=== PATIENT | female | born 1975 | race African-American/Black ===

== ENCOUNTER 2016-07-09 09:42 | Inpatient (IN) | payer MEDICAID, OTHER ==
[~2016-07-09] VITALS: Ht 165.1 cm; Wt 82.6 kg
[2016-07-09 10:09] LABS: BASOPHILS # (AUTO) 0.04 K/uL (0.00-0.20); BASOPHILS % (AUTO) 0.6 % (0.0-2.0); EOSINOPHILS # (AUTO) 0.05 K/uL (0.00-0.70); HEMATOCRIT 37.3 % (36-46); HEMOGLOBIN 11.7 g/dL (12.0-16.0); LYMPHOCYTES # (AUTO) 2.1 K/uL (1.0-4.8); MEAN CORPUSCULAR HEMOGLOBIN 30.1 pg (26.0-34.0); MEAN CORPUSCULAR HGB CONC 31.3 G/dL (31.0-37.0); MEAN CORPUSCULAR VOLUME 96 fL (80-100); MONOCYTES # (AUTO) 0.6 K/uL (0.1-1.0); MONOCYTES % (AUTO) 7.7 % (2.0-9.0); NEUTROPHILS # (AUTO) 4.6 K/uL (1.8-7.7); PLATELET COUNT (AUTO) 452 K/uL (150-450); RED BLOOD CELL COUNT(AUTO) 3.88 MIL/uL (4.00-5.20); RED CELL DISTRIBUTION WIDTH 14.2 % (11.5-14.5); WHITE BLOOD COUNT (AUTO) 7.4 K/uL (4.5-11.0)
[2016-07-09 10:20] LABS: ANION GAP 8 mmol/L (8-16); CALCIUM, TOTAL 8.8 mg/dL (8.8-10.5); CARBON DIOXIDE 28 mmol/L (22-29); CHLORIDE 104 mmol/L (98-107); CREATININE 0.91 mg/dL (0.60-1.30); GLOMERULAR FILTR. RATE CALC > 60 mL/min (>60); POTASSIUM 3.8 mmol/L (3.5-5.1); SODIUM SERUM 140 mmol/L (136-145); UREA NITROGEN, BLOOD 8 mg/dL (7-18)
[2016-07-09 10:26] LABS: ALANINE AMINOTRANSFERASE 23 U/L (12-78); ALBUMIN 3.9 g/dL (3.4-5.0); ASPARTATE AMINOTRANSFERASE 15 U/L (15-37); BILIRUBIN,TOTAL 0.3 mg/dL (0.1-1.0); TOTAL PROTEIN, SERUM 7.8 g/dL (6.4-8.2)
[2016-07-09] MEDS ORDERED: LORazepam 2 MG/ML VIAL IM ONE (10:30)
[2016-07-09] MEDS ORDERED: DiphenhydrAMINE HCL 50 MG/ML VIAL IM ONE (10:30)
[2016-07-09] MEDS ORDERED: HALOPERIDOL LACTATE 5 MG/ML VIAL IM ONE (10:30)
[2016-07-09] MEDS ORDERED: GABA-531 PO (11:13)
[2016-07-09] MEDS ORDERED: LORazepam 2 MG TABLET PO PRN (12:15)
[2016-07-09] MEDS ORDERED: ZOLPIDEM TARTRATE 10 MG TABLET PO PRN (12:15)
[2016-07-10 16:50] VITALS: BP 116/73
[2016-07-10] MEDS ORDERED: PNEUMOCOCCAL VACCINE POLYVALENT 0.5 ML VIAL [PPSV23] IM ONE (17:30)
[2016-07-10] MEDS: HALOPERIDOL 5 MG TABLET PO PRN (18:37)
[2016-07-11 08:42] VITALS: BP 100/58
[2016-07-11] MEDS: NICOTINE 14 MG/24 HOUR PATCH TD SCH (08:43)
[2016-07-11] MEDS ORDERED: ALBUTEROL SULFATE HFA 90 MCG/PUFF 8 GM INHALER IH PRN (09:45)
[2016-07-11] MEDS ORDERED: IBUPROFEN 400 MG TABLET PO PRN (09:45)
[2016-07-11] MEDS ORDERED: ACETAMINOPHEN 325 MG TABLET PO PRN (09:45)
[2016-07-11 16:00] VITALS: BP 105/75
[2016-07-12 06:24] VITALS: BP 117/76
[2016-07-12 08:21] LABS: HEMOGLOBIN A1C 6.2 % (4.5-6.2)
[2016-07-12] MEDS: ARIPiprazole 15 MG TABLET PO SCH (08:44)
[2016-07-12] MEDS: NICOTINE 14 MG/24 HOUR PATCH TD SCH (08:44)
[2016-07-12 08:58] LABS: CHOL/HDL RATIO 2.9 (3.9-5.7); THYROID STIMULATING HORMONE 1.13 uIU/mL (0.36-3.74)
[2016-07-12 16:01] VITALS: BP 111/68
[2016-07-13 06:49] VITALS: BP 115/72
[2016-07-13] MEDS: ARIPiprazole 15 MG TABLET PO SCH (08:27)
[2016-07-13 08:28] VITALS: BP 91/54
[2016-07-13] MEDS: NICOTINE 14 MG/24 HOUR PATCH TD SCH (09:00)
[2016-07-13] MEDS ORDERED: PERMETHRIN 5% 60 GM CREAM TP ONE (10:00)
[2016-07-13] MEDS ORDERED: PERMETHRIN 1% 60 ML LOTION TP ONE (12:00)
[2016-07-13 16:18] VITALS: BP 113/65
[2016-07-14 01:23] VITALS: BP 101/65
[2016-07-14 08:05] VITALS: BP 110/58
[2016-07-14] MEDS: NICOTINE 14 MG/24 HOUR PATCH TD SCH ×2 (08:51→08:56)
[2016-07-14] MEDS: ARIPiprazole 15 MG TABLET PO SCH (08:51)
[2016-07-14 16:08] VITALS: BP 106/68
[2016-07-14] MEDS: HALOPERIDOL 5 MG TABLET PO PRN (16:47)
[2016-07-14] MEDS: MAGNESIUM HYDROXIDE SUSPENSION 30 ML UDCUP PO PRN (18:33)
[2016-07-15 06:10] VITALS: BP 113/76
[2016-07-15] MEDS: NICOTINE 14 MG/24 HOUR PATCH TD SCH (08:44)
[2016-07-15] MEDS: GABAPENTIN 300 MG CAPSULE PO SCH ×2 (08:44→16:27)
[2016-07-15] MEDS: ARIPiprazole 15 MG TABLET PO SCH (08:44)
[2016-07-15 09:15] VITALS: BP 107/69
[2016-07-15] MEDS: MAGNESIUM HYDROXIDE SUSPENSION 30 ML UDCUP PO PRN (11:17)
[2016-07-15 17:48] VITALS: BP 108/76
[2016-07-16 00:50] VITALS: BP 108/63
[2016-07-16] MEDS: ARIPiprazole 15 MG TABLET PO SCH (08:21)
[2016-07-16] MEDS: GABAPENTIN 300 MG CAPSULE PO SCH ×2 (08:21→17:00)
[2016-07-16] MEDS: NICOTINE 14 MG/24 HOUR PATCH TD SCH (08:21)
[2016-07-16 08:30] VITALS: BP 110/70
[2016-07-16 16:00] VITALS: BP 107/66
[2016-07-17 07:11] VITALS: BP 115/69
[2016-07-17] MEDS: NICOTINE 14 MG/24 HOUR PATCH TD SCH (09:00)
[2016-07-17] MEDS ORDERED: ALBU8HFA4 IH (09:18)
[2016-07-17] MEDS ORDERED: ARIP15TA3 PO (09:18)
[2016-07-17] MEDS: GABAPENTIN 300 MG CAPSULE PO SCH (09:56)
[2016-07-17] MEDS: ARIPiprazole 15 MG TABLET PO SCH (09:56)
== END 2016-07-17 10:20 | disposition home or self-care (01) | DRG 750 ==
LOC: EEVIPCON 09:43 → EMS 09:43 → B3A 07-10 15:49 → B2S 07-13 17:35
PROVIDERS: ADMIT Psychiatry & Neurology Psychiatry; ATTEND Psychiatry & Neurology Psychiatry
DX: F20.0 Paranoid schizophrenia (principal); R45.851 Suicidal ideations; Z59.0 Homelessness; J45.909 Unspecified asthma, uncomplicated; D64.9 Anemia, unspecified; F19.10 Other psychoactive substance abuse, uncomplicated; K21.9 Gastro-esophageal reflux disease without esophagitis; F10.20 Alcohol dependence, uncomplicated; Y90.0 Blood alcohol level of less than 20 mg/100 ml
CPT/HCPCS: 83036; 84443; 87081; 90471; 96372; 99285; G0480; J1200; J1630; J2060